=== PATIENT | male | born 1980 | race African-American/Black ===

== ENCOUNTER 2020-10-10 12:18 | Emergency (ER) | payer OTHER ==
[~2020-10-10] VITALS: Ht 177.8 cm; Wt 98.4 kg
[2020-10-10 12:26] VITALS: BP 154/63
== END 2020-10-10 14:04 | disposition home or self-care (01) ==
LOC: ER 12:18
DX: M25.562 Pain in left knee (principal); W10.9XXA Fall (on) (from) unspecified stairs and steps, initial encounter; Y93.89 Activity, other specified; Y92.89 Other specified places as the place of occurrence of the external cause; Y99.8 Other external cause status